=== PATIENT | female | born 1950 | race Caucasian/White ===

== ENCOUNTER 2023-07-10 09:23 | Day surgery (SDC) | payer MEDICARE ==
[~2023-07-10 09:23] MED LIST: Lactated Ringers 1,000 ML IV SCH
[2023-07-10] MEDS ORDERED: fentaNYL 100 MCG/2 ML SDV ONE (11:19)
[2023-07-10] MEDS ORDERED: Propofol 200 MG/20 ML SDV ONE ×3 (11:19→12:02)
== END 2023-07-10 13:27 | disposition home or self-care (01) ==
LOC: VM.SDS 09:23
PROVIDERS: ATTEND Family Medicine
DX: Z12.11 Encounter for screening for malignant neoplasm of colon (principal); D12.0 Benign neoplasm of cecum; K57.30 Diverticulosis of large intestine without perforation or abscess without bleeding; G47.33 Obstructive sleep apnea (adult) (pediatric); I10 Essential (primary) hypertension; E03.9 Hypothyroidism, unspecified; F33.1 Major depressive disorder, recurrent, moderate; E78.2 Mixed hyperlipidemia; N39.46 Mixed incontinence; H91.93 Unspecified hearing loss, bilateral; D64.9 Anemia, unspecified; D70.9 Neutropenia, unspecified; Z90.710 Acquired absence of both cervix and uterus; Z98.890 Other specified postprocedural states; Z79.890 Hormone replacement therapy; Z79.899 Other long term (current) drug therapy; Z79.82 Long term (current) use of aspirin; Z88.8 Allergy status to other drugs, medicaments and biological substances
CPT/HCPCS: 00812; 88305; J2704; J3010; J7120

== ENCOUNTER 2025-06-22 14:41 | Emergency (ER) | payer MEDICARE, OTHER ==
[2025-06-22 15:34] LABS: BASOPHILS ABSOLUTE AUTO 0.0 x10^3/uL (0.0-0.2); BASOPHILS PERCENT AUTO 0.4 % (0.2-1.2); EOSINOPHILS ABSOLUTE AUTO 0.1 x10^3/uL (0.0-0.5); EOSINOPHILS PERCENT AUTO 1.7 % (0.0-4.0); IMMATURE GRAN ABSOLUTE AUTO 0.02 x10^3/uL (0.00-0.07); IMMATURE GRAN PERCENT AUTO 0.20 % (0.00-0.43); LYMPHOCYTES ABSOLUTE AUTO 1.1 x10^3/uL (1.0-4.8); LYMPHOCYTES PERCENT AUTO 14.2 % (25.0-50.0); MONOCYTES ABSOLUTE AUTO 0.7 x10^3/uL (0.0-0.8); MONOCYTES PERCENT AUTO 8.8 % (2.0-11.0); NEUTROPHILS ABSOLUTE AUTO 6.0 x10^3/uL (1.8-7.7); NEUTROPHILS PERCENT AUTO 74.7 % (50.0-80.0); PLATELET COUNT,PLT 101 x10^3/uL (130-400); RED BLOOD CELL COUNT 4.12 x10^6/uL (4.00-5.50); WHITE BLOOD CELL COUNT,WBC 8.0 x10^3/uL (4.0-10.0)
[2025-06-22 15:54] LABS: A/G RATIO 1.03; ALANINE AMINOTRANSFERASE,ALT 20.0 U/L (14-59); ASPARTATE AMNIOTRANSFERASE,AST 22.0 U/L (15-37); BILIRUBIN TOTAL 0.5 mg/dL (0.2-1.0); BLOOD UREA NITROGEN,BUN 19.0 mg/dL (7-18); CARBON DIOXIDE,CO2 32.0 mmol/L (21-32); CHLORIDE,CL 103.0 mmol/L (98-107); CREATININE 1.2 mg/dL (0.55-1.02); EST CRCL DRUG DOSING (CG) 38.78 mL/min; GLUCOSE RANDOM 113.0 mg/dL (70-99); POTASSIUM,K 3.5 mmol/L (3.5-5.1); PROTEIN TOTAL,TP 6.7 g/dL (6.4-8.2); SODIUM,NA 144.0 mmol/L (136-145)
[2025-06-22 15:55] LABS: ESTIMATED GFR 47.0 mL/min (>=60)
[2025-06-22 16:43] LABS: APPEARANCE,URINE CLOUDY (CLEAR); GLUCOSE,URINE NEGATIVE (NEGATIVE); OCCULT BLOOD,URINE NEGATIVE (NEGATIVE)
== END 2025-06-22 16:56 | disposition home or self-care (01) ==
LOC: VM.ED 14:41
DX: R42 Dizziness and giddiness (principal); R29.6 Repeated falls; I10 Essential (primary) hypertension; E78.00 Pure hypercholesterolemia, unspecified; E03.9 Hypothyroidism, unspecified; Z88.0 Allergy status to penicillin; Z79.899 Other long term (current) drug therapy; Z79.890 Hormone replacement therapy; Z86.16 Personal history of COVID-19; Z90.49 Acquired absence of other specified parts of digestive tract; Z90.710 Acquired absence of both cervix and uterus
CPT/HCPCS: 36415; 70450; 80053; 81003; 83605; 83735; 85025; 99284; 99285

== ENCOUNTER 2025-06-23 20:56 | Inpatient (IN) | payer MEDICARE ==
[2025-06-23 22:13] LABS: BASOPHILS ABSOLUTE AUTO 0.0 x10^3/uL (0.0-0.2); BASOPHILS PERCENT AUTO 0.5 % (0.2-1.2); EOSINOPHILS ABSOLUTE AUTO 0.2 x10^3/uL (0.0-0.5); EOSINOPHILS PERCENT AUTO 2.1 % (0.0-4.0); IMMATURE GRAN ABSOLUTE AUTO 0.02 x10^3/uL (0.00-0.07); IMMATURE GRAN PERCENT AUTO 0.30 % (0.00-0.43); LYMPHOCYTES ABSOLUTE AUTO 1.3 x10^3/uL (1.0-4.8); LYMPHOCYTES PERCENT AUTO 16.8 % (25.0-50.0); MONOCYTES ABSOLUTE AUTO 0.6 x10^3/uL (0.0-0.8); MONOCYTES PERCENT AUTO 8.3 % (2.0-11.0); NEUTROPHILS ABSOLUTE AUTO 5.4 x10^3/uL (1.8-7.7); NEUTROPHILS PERCENT AUTO 72.0 % (50.0-80.0); PLATELET COUNT,PLT 108 x10^3/uL (130-400); RED BLOOD CELL COUNT 4.06 x10^6/uL (4.00-5.50); WHITE BLOOD CELL COUNT,WBC 7.5 x10^3/uL (4.0-10.0)
[2025-06-23 22:23] LABS: A/G RATIO 1.27; ALANINE AMINOTRANSFERASE,ALT 20 U/L (14-59); ASPARTATE AMNIOTRANSFERASE,AST 24 U/L (15-37); BILIRUBIN TOTAL 0.6 mg/dL (0.2-1.0); BLOOD UREA NITROGEN,BUN 17 mg/dL (7-18); CARBON DIOXIDE,CO2 25 mmol/L (21-32); CHLORIDE,CL 105 mmol/L (98-107); CREATININE 1.1 mg/dL (0.55-1.02); ESTIMATED GFR 52 mL/min (>=60); GLUCOSE RANDOM 131 mg/dL (70-99); POTASSIUM,K 3.0 mmol/L (3.5-5.1); PROTEIN TOTAL,TP 6.8 g/dL (6.4-8.2); SODIUM,NA 144 mmol/L (136-145)
[2025-06-24] MEDS: Potassium Chloride 20 MEQ Tab.ER PO ONE (00:55)
[2025-06-24 07:03] LABS: BLOOD UREA NITROGEN,BUN 16.0 mg/dL (7-18); CARBON DIOXIDE,CO2 29.0 mmol/L (21-32); CHLORIDE,CL 105.0 mmol/L (98-107); CREATININE 1.1 mg/dL (0.55-1.02); EST CRCL DRUG DOSING (CG) 42.31 mL/min; GLUCOSE RANDOM 103.0 mg/dL (70-99); POTASSIUM,K 3.6 mmol/L (3.5-5.1); SODIUM,NA 144.0 mmol/L (136-145)
[2025-06-24 07:11] LABS: ESTIMATED GFR 52.0 mL/min (>=60)
[2025-06-24 07:16] LABS: APPEARANCE,URINE SLIGHTLY CLOUDY (CLEAR); GLUCOSE,URINE NEGATIVE (NEGATIVE); OCCULT BLOOD,URINE NEGATIVE (NEGATIVE)
[2025-06-24] MEDS: Cyanocobalamin (Vitamin B12) 1,000 MCG Tab PO SCH (08:52)
[2025-06-24] MEDS: Iopamidol 755 Mg/ML 100 ML Bottle IVPUSH ONE ×3 (10:32→10:33)
[2025-06-24] MEDS: Sodium Chloride 0.9% 10 ML Syringe FLUSH PRN (21:06)
[2025-06-25] MEDS: Hypromellose 0.3% Ophth Soln 15 ML Bottle EYEBOTH PRN (06:08)
[2025-06-25 07:57] LABS: BASOPHILS ABSOLUTE AUTO 0.0 x10^3/uL (0.0-0.2); BASOPHILS PERCENT AUTO 0.3 % (0.2-1.2); EOSINOPHILS ABSOLUTE AUTO 0.3 x10^3/uL (0.0-0.5); EOSINOPHILS PERCENT AUTO 3.7 % (0.0-4.0); IMMATURE GRAN ABSOLUTE AUTO 0.02 x10^3/uL (0.00-0.07); IMMATURE GRAN PERCENT AUTO 0.30 % (0.00-0.43); LYMPHOCYTES ABSOLUTE AUTO 1.8 x10^3/uL (1.0-4.8); LYMPHOCYTES PERCENT AUTO 25.7 % (25.0-50.0); MONOCYTES ABSOLUTE AUTO 0.5 x10^3/uL (0.0-0.8); MONOCYTES PERCENT AUTO 7.5 % (2.0-11.0); NEUTROPHILS ABSOLUTE AUTO 4.3 x10^3/uL (1.8-7.7); NEUTROPHILS PERCENT AUTO 62.5 % (50.0-80.0); PLATELET COUNT,PLT 100 x10^3/uL (130-400); RED BLOOD CELL COUNT 4.04 x10^6/uL (4.00-5.50); WHITE BLOOD CELL COUNT,WBC 6.8 x10^3/uL (4.0-10.0)
[2025-06-25 08:01] LABS: BLOOD UREA NITROGEN,BUN 18.0 mg/dL (7-18); CARBON DIOXIDE,CO2 27.0 mmol/L (21-32); CHLORIDE,CL 103.0 mmol/L (98-107); CREATININE 1.0 mg/dL (0.55-1.02); EST CRCL DRUG DOSING (CG) 46.54 mL/min; GLUCOSE RANDOM 96.0 mg/dL (70-99); POTASSIUM,K 3.3 mmol/L (3.5-5.1); SODIUM,NA 142.0 mmol/L (136-145)
[2025-06-25 08:13] LABS: ESTIMATED GFR 58.0 mL/min (>=60)
[2025-06-25] MEDS: Potassium Chloride 20 MEQ Tab.ER PO ONE (10:30)
[2025-06-26 08:15] LABS: BLOOD UREA NITROGEN,BUN 18.0 mg/dL (7-18); CARBON DIOXIDE,CO2 23.0 mmol/L (21-32); CHLORIDE,CL 108.0 mmol/L (98-107); CHOLESTEROL HDL 35.0 mg/dL (40-59); CHOLESTEROL LDL CALCULATED 60.0 mg/dL (0-130); CHOLESTEROL TOTAL 107.0 mg/dL (0-199); CREATININE 0.9 mg/dL (0.55-1.02); EST CRCL DRUG DOSING (CG) 51.71 mL/min; ESTIMATED GFR 66.0 mL/min (>=60); GLUCOSE RANDOM 98.0 mg/dL (70-99); POTASSIUM,K 3.8 mmol/L (3.5-5.1); SODIUM,NA 143.0 mmol/L (136-145)
== END 2025-06-27 18:20 | disposition swing bed (61) | DRG 65 ==
LOC: VM.ED 20:56 → VM.MS 22:40 → OBSVTOIN 06-24 09:16
PROVIDERS: ADMIT Family Medicine; ATTEND Internal Medicine
DX: R53.1 Weakness (principal); I63.9 Cerebral infarction, unspecified; G81.94 Hemiplegia, unspecified affecting left nondominant side; E78.00 Pure hypercholesterolemia, unspecified; Z68.42 Body mass index [BMI] 45.0-49.9, adult; R29.810 Facial weakness; R47.81 Slurred speech; R13.10 Dysphagia, unspecified; R53.81 Other malaise; Z66 Do not resuscitate; H91.90 Unspecified hearing loss, unspecified ear; F32.A Depression, unspecified; F43.10 Post-traumatic stress disorder, unspecified; E78.2 Mixed hyperlipidemia; R29.6 Repeated falls; E87.6 Hypokalemia; E66.813 Obesity, class 3; E03.9 Hypothyroidism, unspecified; Z85.3 Personal history of malignant neoplasm of breast; Z86.16 Personal history of COVID-19; Z79.890 Hormone replacement therapy; Z79.899 Other long term (current) drug therapy; Z79.82 Long term (current) use of aspirin; Z90.89 Acquired absence of other organs; Z88.8 Allergy status to other drugs, medicaments and biological substances; Z90.710 Acquired absence of both cervix and uterus; Z90.10 Acquired absence of unspecified breast and nipple; D69.6 Thrombocytopenia, unspecified; N32.81 Overactive bladder; G47.33 Obstructive sleep apnea (adult) (pediatric); I70.0 Atherosclerosis of aorta; N18.31 Chronic kidney disease, stage 3a; I12.9 Hypertensive chronic kidney disease with stage 1 through stage 4 chronic kidney disease, or unspecified chronic kidney disease; R32 Unspecified urinary incontinence
CPT/HCPCS: 36415; 70496; 80048; 80053; 80061; 81003; 83036; 83735; 84436; 84443; 85025; 92610-GN; 97110-GP; 97116-GP; 97161-GP; 97165-GO; 97530-GP; 97535-GO; 99284; 99285; A9270-GY; J1650; Q3014; Q9967

== ENCOUNTER 2025-06-27 15:56 | Inpatient (IN) | payer MEDICARE ==
[2025-06-27] MEDS ORDERED: Ondansetron 4 MG/2 ML SDV IV PRN (21:09)
[2025-06-27] MEDS ORDERED: Ondansetron 4 MG Tab.DIS PO PRN (21:09)
[2025-06-28 07:06] LABS: PLATELET COUNT,PLT 95.0 x10^3/uL (130-400); RED BLOOD CELL COUNT 3.61 x10^6/uL (4.00-5.50); WHITE BLOOD CELL COUNT,WBC 5.8 x10^3/uL (4.0-10.0)
[2025-07-01 06:46] LABS: BASOPHILS ABSOLUTE AUTO 0.0 x10^3/uL (0.0-0.2); BASOPHILS PERCENT AUTO 0.6 % (0.2-1.2); EOSINOPHILS ABSOLUTE AUTO 0.2 x10^3/uL (0.0-0.5); EOSINOPHILS PERCENT AUTO 3.5 % (0.0-4.0); IMMATURE GRAN ABSOLUTE AUTO 0.02 x10^3/uL (0.00-0.07); IMMATURE GRAN PERCENT AUTO 0.40 % (0.00-0.43); LYMPHOCYTES ABSOLUTE AUTO 1.3 x10^3/uL (1.0-4.8); LYMPHOCYTES PERCENT AUTO 23.3 % (25.0-50.0); MONOCYTES ABSOLUTE AUTO 0.5 x10^3/uL (0.0-0.8); MONOCYTES PERCENT AUTO 8.4 % (2.0-11.0); NEUTROPHILS ABSOLUTE AUTO 3.4 x10^3/uL (1.8-7.7); NEUTROPHILS PERCENT AUTO 63.8 % (50.0-80.0); PLATELET COUNT,PLT 96 x10^3/uL (130-400); RED BLOOD CELL COUNT 3.73 x10^6/uL (4.00-5.50); WHITE BLOOD CELL COUNT,WBC 5.4 x10^3/uL (4.0-10.0)
[2025-07-01 07:19] LABS: BLOOD UREA NITROGEN,BUN 18.0 mg/dL (7-18); CARBON DIOXIDE,CO2 25.0 mmol/L (21-32); CHLORIDE,CL 108.0 mmol/L (98-107); CREATININE 1.1 mg/dL (0.55-1.02); EST CRCL DRUG DOSING (CG) 42.31 mL/min; GLUCOSE RANDOM 96.0 mg/dL (70-99); POTASSIUM,K 4.0 mmol/L (3.5-5.1); SODIUM,NA 141.0 mmol/L (136-145)
[2025-07-01 07:22] LABS: ESTIMATED GFR 52.0 mL/min (>=60)
[2025-07-01 10:40] VITALS: BP 162/77; PULSE 69
== END 2025-07-01 10:45 | disposition home or self-care (01) | DRG 947 ==
LOC: VM.MS 18:29
PROVIDERS: ADMIT Internal Medicine; ATTEND Internal Medicine
DX: R53.1 Weakness (principal); I63.9 Cerebral infarction, unspecified; Z68.42 Body mass index [BMI] 45.0-49.9, adult; Z66 Do not resuscitate; I10 Essential (primary) hypertension; E03.9 Hypothyroidism, unspecified; F32.A Depression, unspecified; F43.12 Post-traumatic stress disorder, chronic; E87.6 Hypokalemia; H91.90 Unspecified hearing loss, unspecified ear; G47.33 Obstructive sleep apnea (adult) (pediatric); E66.01 Morbid (severe) obesity due to excess calories; D69.6 Thrombocytopenia, unspecified; E78.00 Pure hypercholesterolemia, unspecified; K44.9 Diaphragmatic hernia without obstruction or gangrene; D64.9 Anemia, unspecified; Z85.3 Personal history of malignant neoplasm of breast; Z86.16 Personal history of COVID-19; Z90.49 Acquired absence of other specified parts of digestive tract; Z79.82 Long term (current) use of aspirin; Z79.899 Other long term (current) drug therapy; Z88.8 Allergy status to other drugs, medicaments and biological substances; Z90.710 Acquired absence of both cervix and uterus; Z98.890 Other specified postprocedural states; Z90.10 Acquired absence of unspecified breast and nipple
CPT/HCPCS: 36415; 70551; 80048; 85025; 85027; 97110-GP; 97116-GP; 97535-GO; A9270-GY